=== PATIENT | female | born 1975 | race Caucasian/White ===

== ENCOUNTER 2017-09-27 07:17 | Inpatient (IN) | payer MEDICAID ==
[~2017-09-27] VITALS: Ht 167.6 cm; Wt 108.2 kg
[~2017-09-27 07:17] MED LIST: CYCL-1 PO
[2017-09-27] MEDS ORDERED: piperacillin/tazo 3.375gm/50ml 50 ML IV ONE (08:20)
[2017-09-27 08:41] LABS: BASOPHILS % (AUTO) 0.2 % (0-1); EOSINOPHILS # (AUTO) 0.1 X10'3 (0-0.9); EOSINOPHILS % (AUTO) 0.5 % (0-6); HEMATOCRIT 39.3 % (35.0-45.0); HEMOGLOBIN 13.6 g/dl (12.0-16.0); LYMPHOCYTES # (AUTO) 2.2 X10'3 (1.1-4.8); LYMPHOCYTES % (AUTO) 8.1 % (21-51); MEAN CORPUSCULAR HEMOGLOBIN 30.8 PG (27.0-31.0); MEAN CORPUSCULAR HGB CONC 34.6 % (33.0-36.5); MONOCYTES # (AUTO) 1.3 X10'3 (0-0.9); MONOCYTES % (AUTO) 4.6 % (2-12); NEUTROPHILS # (AUTO) 23.4 X10'3 (1.8-7.7); NEUTROPHILS % (AUTO) 86.6 % (42-75); PLATELET COUNT 253 X10'3 (140-440); RED BLOOD COUNT 4.41 X10'6 (4.20-5.60); RED CELL DISTRIBUTION WIDTH 13.4 % (11.5-14.5)
[2017-09-27] MEDS ORDERED: ondansetron/PF 4mg/2ml inj IV ONE (08:50)
[2017-09-27] MEDS ORDERED: morphine 4 MG/ML inj SYRINge IV ONE (08:50)
[2017-09-27 08:56] LABS: ALANINE AMINOTRANSFERASE 21 U/L (12-78); ALBUMIN 3.1 G/DL (3.4-5.0); ALBUMIN/GLOBULIN RATIO 0.7 (1.1-1.5); ALKALINE PHOSPHATASE 90 IU/L (46-116); ANION GAP 13 (8-16); ASPARTATE AMINO TRANSFERASE 11 U/L (10-37); BILIRUBIN,TOTAL 0.8 MG/DL (0.1-1.0); BLOOD UREA NITROGEN 9 MG/DL (7-18); BUN/CREATININE RATIO 12.2 (6.6-38.0); CALCIUM 8.4 MG/DL (8.5-10.1); CHLORIDE 100 MMOL/L (99-107); CREATININE 0.74 MG/DL (0.40-0.90); GLUCOSE 124 MG/DL (70-104); MAGNESIUM 1.9 MG/DL (1.5-2.4); POTASSIUM 3.6 MMOL/L (3.5-5.1); SODIUM 134 MMOL/L (135-145); TOTAL CARBON DIOXIDE 21.3 MMOL/L (24-32); TOTAL PROTEIN 7.4 G/DL (6.4-8.2); eGFR 86 ML/MIN
[2017-09-27 09:06] LABS: PLATELET ESTIMATE NORMAL; TOTAL CELLS COUNTED 100
[2017-09-27] MEDS ORDERED: normal saline 1000ML IV soln IVB ONE (09:25)
[2017-09-27] MEDS ORDERED: ATOR10TA70 PO (09:53)
[2017-09-27] MEDS ORDERED: mag hydrox/Alum hydrox/simeth 30ml oral suspension PO PRN (10:30)
[2017-09-27] MEDS ORDERED: magnesium hydroxide 30ml (MOM) UD suspension PO PRN (10:30)
[2017-09-27] MEDS ORDERED: acetaminophen 325mg tablet PO PRN ×2 (10:30)
[2017-09-27] MEDS ORDERED: HYDROcodone/acetaminophen 5mg/325mg tablet PO PRN (10:30)
[2017-09-27] MEDS ORDERED: ondansetron/PF 4mg/2ml inj IV PRN (10:30)
[2017-09-27] MEDS ORDERED: cyclobenzaprine 10mg tablet PO PRN (10:40)
[2017-09-27 11:08] LABS: CLARITY,URINE CLOUDY (Clear); COLOR,URINE YELLOW (Yellow); GLUCOSE, URINE NEGATIVE (Neg); KETONES,URINE TRACE mg/dl (Neg); LEUKOCYTE ESTERASE ,URINE NEGATIVE (Neg); NITRITES, URINE NEGATIVE (Neg); OCCULT BLOOD,URINE TRACE-INTACT (Neg); PH,URINE 5.5 (4.8-8.0); PROTEIN,URINE NEGATIVE (Neg); UROBILINOGEN,URINE 0.2 E.U/dL (0.2-1.0)
[2017-09-27 11:09] LABS: UA COLLECTION TYPE VOIDED; URINE HCG NEGATIVE (NEG)
[2017-09-27 11:14] LABS: MUCUS STRANDS FEW /LPF (Neg); SQUAMOUS EPITHELIAL CELL,UR FEW /LPF (FEW)
[2017-09-27] MEDS: normal saline 1000ml 1,000 ML IV SCH ×2 (11:14→19:58)
[2017-09-27 11:15] LABS: AMORPHOUS URATES 2+; BACTERIA,URINE 1+ /HPF (Neg); RBC,URINE 0-2 /HPF (0-2); WBC,URINE 0-4 /HPF (0-4)
[2017-09-27 13:00] VITALS: BP 117/74
[2017-09-27] MEDS: ampicill/sulbac 1.5gm/NS 100ml 100 ML IV SCH ×2 (14:00→20:01)
[2017-09-27] MEDS: HYDROcodone/acetaminophen 10/325mg tab PO PRN ×2 (17:26→23:40)
[2017-09-27 20:00] VITALS: BP 106/66
[2017-09-27] MEDS ORDERED: vancomycin/NS 1 GM ADD-VANTAGE 250 ML IV SCH (20:00)
[2017-09-27] MEDS ORDERED: temazepam 15mg capsule PO PRN (21:00)
[2017-09-28] VITALS: BP 117/72
[2017-09-28] MEDS: ampicill/sulbac 1.5gm/NS 100ml 100 ML IV SCH ×4 (02:56→20:14)
[2017-09-28 06:12] LABS: BASOPHILS # (AUTO) 0.1 X10'3 (0-0.2); BASOPHILS % (AUTO) 0.2 % (0-1); EOSINOPHILS # (AUTO) 0.5 X10'3 (0-0.9); EOSINOPHILS % (AUTO) 2.1 % (0-6); HEMATOCRIT 34.8 % (35.0-45.0); HEMOGLOBIN 11.5 g/dl (12.0-16.0); LYMPHOCYTES # (AUTO) 2.7 X10'3 (1.1-4.8); LYMPHOCYTES % (AUTO) 11.9 % (21-51); MEAN CORPUSCULAR HEMOGLOBIN 29.8 PG (27.0-31.0); MEAN CORPUSCULAR HGB CONC 33.1 % (33.0-36.5); MEAN CORPUSCULAR VOLUME 89.9 FL (78-98); MEAN PLATELET VOLUME 7.3 FL (7.4-10.4); MONOCYTES # (AUTO) 1.3 X10'3 (0-0.9); MONOCYTES % (AUTO) 5.6 % (2-12); NEUTROPHILS # (AUTO) 18.3 X10'3 (1.8-7.7); NEUTROPHILS % (AUTO) 80.2 % (42-75); PLATELET COUNT 263 X10'3 (140-440); RED BLOOD COUNT 3.87 X10'6 (4.20-5.60); RED CELL DISTRIBUTION WIDTH 13.9 % (11.5-14.5); WHITE BLOOD COUNT 22.8 X10'3 (4.5-11.0)
[2017-09-28 06:31] LABS: ALBUMIN 2.5 G/DL (3.4-5.0); ANION GAP 8 (8-16); BLOOD UREA NITROGEN 7 MG/DL (7-18); BUN/CREATININE RATIO 10.8 (6.6-38.0); CALCIUM 7.7 MG/DL (8.5-10.1); CHLORIDE 103 MMOL/L (99-107); CREATININE 0.65 MG/DL (0.40-0.90); GLUCOSE 99 MG/DL (70-104); POTASSIUM 3.7 MMOL/L (3.5-5.1); SODIUM 137 MMOL/L (135-145); TOTAL CARBON DIOXIDE 26.1 MMOL/L (24-32); eGFR > 90 ML/MIN
[2017-09-28 06:54] VITALS: BP 110/65
[2017-09-28] MEDS: atorvastatin 10mg tablet PO SCH (08:16)
[2017-09-28] MEDS: HYDROcodone/acetaminophen 10/325mg tab PO PRN ×2 (08:16→18:54)
[2017-09-28] MEDS: enoxaparin 40mg/0.4ml syringe SQ SCH (08:17)
[2017-09-28] MEDS: normal saline 1000ml 1,000 ML IV SCH (08:31)
[2017-09-28] MEDS ORDERED: VANCOMYCIN LEVEL IV NR (11:30)
[2017-09-28 12:15] VITALS: BP 98/65
[2017-09-28 19:00] VITALS: BP 130/78
[2017-09-28] MEDS: lactobacillus rhamnosus 10,000 MMU CELLS/CAPSULE PO SCH (20:14)
[2017-09-29] VITALS: BP 108/73
[2017-09-29] MEDS ORDERED: VANCOMYCIN LEVEL IV NR (00:30)
[2017-09-29 01:00] LABS: ANION GAP 6 (8-16); CHLORIDE 107 MMOL/L (99-107); GLUCOSE 113 MG/DL (70-104); POTASSIUM 3.8 MMOL/L (3.5-5.1); SODIUM 141 MMOL/L (135-145); TOTAL CARBON DIOXIDE 28.2 MMOL/L (24-32)
[2017-09-29 01:01] LABS: ALBUMIN 2.3 G/DL (3.4-5.0); BLOOD UREA NITROGEN 9 MG/DL (7-18); BUN/CREATININE RATIO 13.6 (6.6-38.0); CALCIUM 8.2 MG/DL (8.5-10.1); CREATININE 0.66 MG/DL (0.40-0.90); VANCOMYCIN,TROUGH 12.7 UG/ML (6.0-14.0); eGFR > 90 ML/MIN
[2017-09-29] MEDS: ampicill/sulbac 1.5gm/NS 100ml 100 ML IV SCH ×4 (03:14→20:09)
[2017-09-29] MEDS: HYDROcodone/acetaminophen 10/325mg tab PO PRN ×2 (03:18→17:38)
[2017-09-29 06:10] LABS: BASOPHILS % (AUTO) 0.2 % (0-1); EOSINOPHILS # (AUTO) 0.5 X10'3 (0-0.9); EOSINOPHILS % (AUTO) 3.4 % (0-6); HEMATOCRIT 32.3 % (35.0-45.0); HEMOGLOBIN 10.8 g/dl (12.0-16.0); LYMPHOCYTES # (AUTO) 2.8 X10'3 (1.1-4.8); LYMPHOCYTES % (AUTO) 17.5 % (21-51); MEAN CORPUSCULAR HEMOGLOBIN 30.1 PG (27.0-31.0); MEAN CORPUSCULAR HGB CONC 33.5 % (33.0-36.5); MEAN PLATELET VOLUME 7.3 FL (7.4-10.4); MONOCYTES # (AUTO) 0.8 X10'3 (0-0.9); MONOCYTES % (AUTO) 4.8 % (2-12); NEUTROPHILS # (AUTO) 11.6 X10'3 (1.8-7.7); NEUTROPHILS % (AUTO) 74.1 % (42-75); PLATELET COUNT 269 X10'3 (140-440); RED BLOOD COUNT 3.59 X10'6 (4.20-5.60); RED CELL DISTRIBUTION WIDTH 13.9 % (11.5-14.5); WHITE BLOOD COUNT 15.7 X10'3 (4.5-11.0)
[2017-09-29 07:32] VITALS: BP 108/57
[2017-09-29] MEDS: lactobacillus rhamnosus 10,000 MMU CELLS/CAPSULE PO SCH ×2 (08:33→20:09)
[2017-09-29] MEDS: atorvastatin 10mg tablet PO SCH (08:33)
[2017-09-29] MEDS: enoxaparin 40mg/0.4ml syringe SQ SCH (08:34)
[2017-09-29 11:00] VITALS: BP 104/68
[2017-09-29 20:00] VITALS: BP 135/90
[2017-09-30 00:29] VITALS: BP 127/84
[2017-09-30] MEDS: ampicill/sulbac 1.5gm/NS 100ml 100 ML IV SCH ×2 (02:15→07:25)
[2017-09-30] MEDS: HYDROcodone/acetaminophen 10/325mg tab PO PRN ×2 (02:15→19:14)
[2017-09-30 04:06] LABS: BASOPHILS % (AUTO) 0.3 % (0-1); EOSINOPHILS # (AUTO) 0.5 X10'3 (0-0.9); HEMATOCRIT 31.6 % (35.0-45.0); HEMOGLOBIN 10.5 g/dl (12.0-16.0); LYMPHOCYTES # (AUTO) 2.9 X10'3 (1.1-4.8); LYMPHOCYTES % (AUTO) 21.8 % (21-51); MEAN CORPUSCULAR HEMOGLOBIN 29.5 PG (27.0-31.0); MEAN CORPUSCULAR HGB CONC 33.3 % (33.0-36.5); MEAN CORPUSCULAR VOLUME 88.7 FL (78-98); MONOCYTES # (AUTO) 0.8 X10'3 (0-0.9); NEUTROPHILS # (AUTO) 9.1 X10'3 (1.8-7.7); NEUTROPHILS % (AUTO) 67.9 % (42-75); PLATELET COUNT 300 X10'3 (140-440); RED BLOOD COUNT 3.56 X10'6 (4.20-5.60); RED CELL DISTRIBUTION WIDTH 13.8 % (11.5-14.5); WHITE BLOOD COUNT 13.4 X10'3 (4.5-11.0)
[2017-09-30 04:37] LABS: ALBUMIN 2.3 G/DL (3.4-5.0); ANION GAP 9 (8-16); BLOOD UREA NITROGEN 8 MG/DL (7-18); BUN/CREATININE RATIO 11.9 (6.6-38.0); CALCIUM 8.4 MG/DL (8.5-10.1); CHLORIDE 105 MMOL/L (99-107); CREATININE 0.67 MG/DL (0.40-0.90); GLUCOSE 108 MG/DL (70-104); POTASSIUM 3.8 MMOL/L (3.5-5.1); SODIUM 139 MMOL/L (135-145); TOTAL CARBON DIOXIDE 25.5 MMOL/L (24-32); eGFR > 90 ML/MIN
[2017-09-30] MEDS: lactobacillus rhamnosus 10,000 MMU CELLS/CAPSULE PO SCH ×2 (07:25→19:14)
[2017-09-30] MEDS: atorvastatin 10mg tablet PO SCH (07:25)
[2017-09-30] MEDS: enoxaparin 40mg/0.4ml syringe SQ SCH (07:26)
[2017-09-30 07:42] VITALS: BP 121/77
[2017-09-30 11:30] VITALS: BP 127/86
[2017-09-30] MEDS ORDERED: VANCOMYCIN LEVEL IV ONE (13:30)
[2017-09-30] MEDS: amox tr/potassium clavulanate 875/125mg TAB PO SCH (17:33)
[2017-09-30 18:00] VITALS: BP 132/84
[2017-10-01] VITALS: BP 112/73
[2017-10-01 05:35] LABS: BASOPHILS # (AUTO) 0.1 X10'3 (0-0.2); BASOPHILS % (AUTO) 0.5 % (0-1); EOSINOPHILS # (AUTO) 0.5 X10'3 (0-0.9); HEMOGLOBIN 11.1 g/dl (12.0-16.0); LYMPHOCYTES # (AUTO) 3.1 X10'3 (1.1-4.8); LYMPHOCYTES % (AUTO) 23.5 % (21-51); MEAN CORPUSCULAR HEMOGLOBIN 30.2 PG (27.0-31.0); MEAN CORPUSCULAR HGB CONC 33.8 % (33.0-36.5); MEAN CORPUSCULAR VOLUME 89.3 FL (78-98); MEAN PLATELET VOLUME 6.8 FL (7.4-10.4); MONOCYTES # (AUTO) 0.8 X10'3 (0-0.9); MONOCYTES % (AUTO) 5.8 % (2-12); NEUTROPHILS # (AUTO) 8.7 X10'3 (1.8-7.7); NEUTROPHILS % (AUTO) 66.2 % (42-75); PLATELET COUNT 352 X10'3 (140-440); RED BLOOD COUNT 3.69 X10'6 (4.20-5.60); RED CELL DISTRIBUTION WIDTH 13.9 % (11.5-14.5); WHITE BLOOD COUNT 13.1 X10'3 (4.5-11.0)
[2017-10-01 06:13] LABS: ALBUMIN 2.3 G/DL (3.4-5.0); ANION GAP 6 (8-16); BLOOD UREA NITROGEN 6 MG/DL (7-18); BUN/CREATININE RATIO 9.7 (6.6-38.0); CALCIUM 8.5 MG/DL (8.5-10.1); CHLORIDE 106 MMOL/L (99-107); CREATININE 0.62 MG/DL (0.40-0.90); GLUCOSE 98 MG/DL (70-104); POTASSIUM 3.7 MMOL/L (3.5-5.1); SODIUM 139 MMOL/L (135-145); TOTAL CARBON DIOXIDE 27.5 MMOL/L (24-32); eGFR > 90 ML/MIN
[2017-10-01 06:48] VITALS: BP 121/74
[2017-10-01] MEDS: enoxaparin 40mg/0.4ml syringe SQ SCH (07:29)
[2017-10-01] MEDS: atorvastatin 10mg tablet PO SCH (07:29)
[2017-10-01] MEDS: amox tr/potassium clavulanate 875/125mg TAB PO SCH ×2 (07:29→17:47)
[2017-10-01] MEDS: lactobacillus rhamnosus 10,000 MMU CELLS/CAPSULE PO SCH ×2 (07:29→19:25)
[2017-10-01 11:27] VITALS: BP 130/86
[2017-10-01] MEDS ORDERED: iohexol 300mg/ml 100ml inj. ONE (11:33)
[2017-10-01] MEDS ORDERED: normal saline 1000ml 1,000 ML IV ONE (11:45)
[2017-10-01] MEDS: acetylcysteine 200 MG/ml 4ml vial PO SCH ×2 (13:02→19:26)
[2017-10-01] MEDS: HYDROcodone/acetaminophen 10/325mg tab PO PRN (17:51)
[2017-10-01 18:00] VITALS: BP 117/77
[2017-10-01 23:51] VITALS: BP 112/70
[2017-10-02 05:46] LABS: BASOPHILS % (AUTO) 0.1 % (0-1); EOSINOPHILS # (AUTO) 0.5 X10'3 (0-0.9); HEMATOCRIT 33.7 % (35.0-45.0); HEMOGLOBIN 11.4 g/dl (12.0-16.0); LYMPHOCYTES # (AUTO) 3.1 X10'3 (1.1-4.8); LYMPHOCYTES % (AUTO) 24.2 % (21-51); MEAN CORPUSCULAR HEMOGLOBIN 30.2 PG (27.0-31.0); MEAN CORPUSCULAR HGB CONC 33.9 % (33.0-36.5); MEAN PLATELET VOLUME 6.8 FL (7.4-10.4); MONOCYTES # (AUTO) 0.8 X10'3 (0-0.9); NEUTROPHILS # (AUTO) 8.4 X10'3 (1.8-7.7); NEUTROPHILS % (AUTO) 65.7 % (42-75); PLATELET COUNT 384 X10'3 (140-440); RED BLOOD COUNT 3.78 X10'6 (4.20-5.60); RED CELL DISTRIBUTION WIDTH 13.7 % (11.5-14.5); WHITE BLOOD COUNT 12.8 X10'3 (4.5-11.0)
[2017-10-02 06:42] LABS: ALBUMIN 2.4 G/DL (3.4-5.0); ANION GAP 7 (8-16); BLOOD UREA NITROGEN 8 MG/DL (7-18); BUN/CREATININE RATIO 11.8 (6.6-38.0); CALCIUM 8.5 MG/DL (8.5-10.1); CHLORIDE 105 MMOL/L (99-107); CREATININE 0.68 MG/DL (0.40-0.90); GLUCOSE 118 MG/DL (70-104); POTASSIUM 4.1 MMOL/L (3.5-5.1); SODIUM 140 MMOL/L (135-145); TOTAL CARBON DIOXIDE 27.6 MMOL/L (24-32); eGFR > 90 ML/MIN
[2017-10-02 07:00] VITALS: BP 135/98
[2017-10-02] MEDS: enoxaparin 40mg/0.4ml syringe SQ SCH (08:00)
[2017-10-02] MEDS ORDERED: AMOX-580 PO (08:28)
[2017-10-02] MEDS: lactobacillus rhamnosus 10,000 MMU CELLS/CAPSULE PO SCH (08:29)
[2017-10-02] MEDS: atorvastatin 10mg tablet PO SCH (08:29)
[2017-10-02] MEDS: acetylcysteine 200 MG/ml 4ml vial PO SCH (08:29)
[2017-10-02] MEDS: amox tr/potassium clavulanate 875/125mg TAB PO SCH (08:29)
== END 2017-10-02 11:30 | disposition home or self-care (01) | DRG 385 ==
LOC: ER 07:18 → ED HOLD 10:28 → SUR 3N 12:44
PROVIDERS: ADMIT Hospitalist; ATTEND Family Medicine
DX: N61.1 Abscess of the breast and nipple (principal); L03.313 Cellulitis of chest wall; E78.5 Hyperlipidemia, unspecified; Z87.891 Personal history of nicotine dependence; Z90.49 Acquired absence of other specified parts of digestive tract
CPT/HCPCS: 36415; 71045; 71260; 76882; 80048; 80053; 80202; 81001; 81025; 83605; 83735; 84145; 85025; 87040; 87070; 87075; 87077; 87102; 87186; 93005; 96361; 96365; 96375; 99285; A6212; A6258; A6449; J0295; J1650; J2270; J2405; J2543; J3370; J7030; Q9967